=== PATIENT | male | born 1990 | race Caucasian/White ===

== ENCOUNTER → 2020-11-06 | Outpatient (CLI) | payer BC ==
--- NOTE | 2020-11-06 19:01 | RAD ---
PROCEDURE: XR FOOT_LEFT 2 VIEWS STUDY DATE: 11/06/2020 CLINICAL INDICATION / HISTORY: Reason: FOOT PAIN / Spl. Instructions: / History: . TECHNIQUE: AP, lateral and oblique views of the left foot. COMPARISON: None FINDINGS: No fracture or dislocation is identified. The bone density is normal. The joint space width s are maintained, and there are no erosions to suggest an inflammatory arthropathy. No soft tissue ab normality is seen. IMPRESSION: No acute osseous abnormality. Electronically signed by: Vernon Posada MD (11/06/2020 6:59 PM) [id number]
== END ==
LOC: DXRAD 14:55
PROVIDERS: ATTEND Podiatrist Foot & Ankle Surgery
DX: M79.672 Pain in left foot (principal)
CPT/HCPCS: 73620